=== PATIENT | female | born 1965 | race African-American/Black ===

== ENCOUNTER 2017-06-19 08:13 | Emergency (ER) | payer MEDICARE, MEDICAID ==
[~2017-06-19] VITALS: Ht 170.2 cm; Wt 136.0 kg
[2017-06-19] MEDS ORDERED: ACETAMINOPHEN 325MG TABLET PO ONE (15:00)
[2017-06-19 18:08] VITALS: BP 142/85
== END 2017-06-19 18:14 | disposition home or self-care (01) ==
LOC: ER 08:20
DX: R60.0 Localized edema (principal); M79.672 Pain in left foot; M79.671 Pain in right foot; M25.572 Pain in left ankle and joints of left foot; M19.90 Unspecified osteoarthritis, unspecified site; F17.200 Nicotine dependence, unspecified, uncomplicated
CPT/HCPCS: 73630; 93971; 99284

== ENCOUNTER 2018-02-26 19:38 | Emergency (ER) | payer MEDICAID, MEDICARE, OTHER ==
[~2018-02-26] VITALS: Ht 170.2 cm; Wt 136.0 kg
[2018-02-26] MEDS ORDERED: IBUPROFEN 800MG TABLET PO ONE (22:30)
[2018-02-26 22:39] VITALS: BP 168/90
== END 2018-02-27 00:22 | disposition home or self-care (01) ==
LOC: ER 19:38
DX: S93.602A Unspecified sprain of left foot, initial encounter (principal); F17.200 Nicotine dependence, unspecified, uncomplicated; Z98.1 Arthrodesis status; Z79.890 Hormone replacement therapy; X58.XXXA Exposure to other specified factors, initial encounter; Y93.89 Activity, other specified; Y92.89 Other specified places as the place of occurrence of the external cause; Y99.8 Other external cause status
CPT/HCPCS: 29515; 73610; 73630; 99284